=== PATIENT | male | born 1940 | race Caucasian/White ===

== ENCOUNTER 2024-10-19 05:35 | Day surgery (SDC) | payer MEDICARE, SELFPAY ==
--- NOTE | 2024-10-17 06:57 | EKG_ITS ---
[facility] Test Date: 2024-10-17 Pat Name: INDU YARBROUGH Department: Room: - Gender: Male Clinical Administrative Coordinator: OLEGARIO : 1940 Requested By: Andi Schilling Order Number: [id number] Reading MD: Andi Schilling Measurements Intervals [place] Rate: 59 P: 34 TN: 159 QRS: 26 QRSD: 99 T: 53 QT: 426 QTc: 425 Interpretive Statements SINUS BRADYCARDIA WITH MARKED SINUS ARRHYTHMIA No previous ECG available for comparison /[id number]
[2024-10-17 09:56] VITALS: BMI 29.2
[2024-10-17 12:18] LABS: Alanine Aminotransferase 22 U/L (10-49); Albumin, Serum 4.4 gm/dL (3.4-4.8); Albumin/Globulin Ratio 1.5 (1.2-2.2); Alkaline Phosphatase 51 U/L (46-116); Anion Gap 13 (7-16); Aspartate Amino Transferase 45 U/L (0-34); BUN/Creatinine Ratio 18 Ratio (12-20); Bilirubin,Total 1.1 mg/dL (0.3-1.2); Blood Urea Nitrogen 21 mg/dL (9-23); Calcium 9.7 mg/dL (8.3-10.6); Calcium (Corrected) 9.7 mg/dL (8.5-10.1); Carbon Dioxide 21.7 mMol/L (20.0-31.0); Chloride 105 mMol/L (98-107); Creatinine (Component) 1.2 mg/dL (0.6-1.3); Estimated Creatinine Clearance 43.8 mL/min (>60); Glucose 100 mg/dL (74-106); Osmolality,Calculated 282 (275-295); Potassium 3.6 mMol/L (3.4-5.1); Sodium 140 mMol/L (136-145); Total Protein 7.4 gm/dL (5.7-8.2); eGFR 59 See Note
[2024-10-19] VITALS (8 sets, daily range): BP systolic 118–149; BP diastolic 63–85; PULSE 61–92; RESP 12–20; TEMP 36.1–36.7; O2SAT 93–99; BMI 28.2
[2024-10-19] MEDS: DEXAMETHASONE SOD PHOS INJ 10 MG/ML VIAL 8 MG IV (07:44)
--- NOTE | 2024-10-19 09:55 | XR_ITS ---
Examination: Skull series 2 views TECHNIQUE: Judi sagittal oblique skull series 2 views Exam date and time: October 19, 2024 1104 hours INDICATIONS: Status post cochlear implant placement today. FINDINGS: Left cochlear implant lead satisfactory position No right cochlear implant lead is depicted IMPRESSION: Left cochlear implant lead satisfactory position
--- NOTE | 2024-10-19 09:59 | PD.SUROPNT ---
Date of Procedure 10/19/24 Pre Op Diagnosis Bilateral profound sensorineural hearing loss Post Op Diagnosis Bilateral profound sensorineural hearing loss Procedure Left mastoidectomy with insertion of cochlear implant and facial nerve monitoring Findings Well-aerated mastoid air cells with normal placement of the facial nerve. Ossicular chain was intact. There was some thickened fibrotic tissue in the mastoid cavity that was sent for pathologic evaluation. Procedure Description Indications: This is a 84-year-old male with profound sensorineural hearing loss no longer improved with hearing aids. He met criteria for cochlear implant insertion with a 0% [place] bio score. Treatment options were discussed as well as surgical risks including facial nerve paralysis decreased sense of taste dizziness. Patient understood this and wished to proceed. Patient was marked and shaved in the preoperative setting and transferred to the operative suite where he was anesthetized and intubated. Timeout was performed. Facial nerve monitoring electrodes were placed in usual fashion for the left ear. Ear was sterilely prepped and draped. The postauricular area was injected with 1% lidocaine with 1 100,000 dilution epinephrine. Approximately 4 cc total were used. A lazy S incision was then performed postauricularly. Anterior and posterior flaps were developed and oozing controlled with monopolar cautery. The palva flap was created the ear was turned forward and the external auditory canal was identified after identifying the temporal line. Pocket was elevated with a periosteal elevator posteriorly for the internal scraper loader operator as well as anteriorly for the ground electrode. Canal wall up mastoidectomy was then performed setting the posterior canal wall. Dissection was kept anterior to the sigmoid sinus and inferior to the tegmen. There was a large air cell in the mastoid cavity which had the fibrotic tissue which was removed. Facial nerve was identified and confirmed with the nerve monitor after localizing the horizontal canal and incus. The chorda facial angle was opened up with a combination of a 2 mm kristal and a 1.5 mm. The round window niche was identified and was thinned out with the 1.5 mm bur. Irrigation was used throughout the drilling. Once the round window was identified the scraper loader operator well and tract were drilled with a 4 mm cutting bur. The mastoid cavity was then irrigated with warm saline solution and suction. The implant was then brought into the field and placed into the pocket. The active electrode was carefully inserted into the oval window after opening it with a straight pick and 30 mm hook. Full insertion was obtained. The ground electrode was placed in this pocket. The palva flap was closed and the internal scraper loader operator secured. A running subcutaneous suture was performed for the soft tissue closure. The electrode was then tested with the impedance device. All electrodes were found to be functioning. All electrodes except electrode 1 had a good response. Dermabond was then placed on the skin. The monitoring electrodes were removed the patient was awakened and taken the recovery room in stable condition. Anesthesia GETA Implants Left cochlear implant model CI 622 serial #[id number] Pathology / specimen Other (Mastoid mucosa) Estimated Blood Loss 15 Surgeon Andi Montoya DO Surgical Staff Operation Date: 10/19/24 07:30 Case Staff Anesthesiologist: Axel Foster
--- NOTE | 2024-10-19 10:03 | SUR.PHASEI ---
1003 Patient arrived to recovery resting comfortably in [facility], on oxygen 8L via oxy mask with an oral airway in place, breathing unlabored, vital signs stable, dressing intact to left ear; behind ear dermabond, to ear-cottonball, gauze, di; no bleeding noted, report received from Ehsan RN/Rose PAL and Dr. Foster
--- NOTE | 2024-10-19 11:08 | SUR.PHASEII ---
1108 XRAY completed per MD order
--- NOTE | 2024-10-19 11:15 | SUR.PHASEII ---
1115 Patient meets discharge criteria from recovery, awake and alert, breathing unlabored, vital signs stable, denies pain, dressing intact; no bleeding noted, drinking water; tolerating well, denies nausea, patient assisted with dressing into his clothing by this journalists and other writers, discharge instructions given to patient and patients , signed discharge instructions. Patient given all his belongings prior to discharge, transported via wheelchair and left in a private vehicle.
== END 2024-10-19 11:15 | disposition home or self-care (01) ==
PROVIDERS: PCP Family Medicine; Referring Provider Otolaryngology; Visit Provider Otolaryngology
PROC: (CPT 69930; principal; 2024-10-19 07:30)
DX: H90.3 Sensorineural hearing loss, bilateral (principal); I10 Essential (primary) hypertension; E11.9 Type 2 diabetes mellitus without complications; E78.5 Hyperlipidemia, unspecified; Z85.46 Personal history of malignant neoplasm of prostate; Z85.828 Personal history of other malignant neoplasm of skin; Z87.891 Personal history of nicotine dependence
CPT/HCPCS: 69930; 36415; 70250; 80053; 93005; A4217; A4649; J0171; J0690; J1100; J1885; J2371; J2405; J2704; J3010; J3473; J3490; J7040; L8614; L8690; Q9968; A9270